=== PATIENT | female | born 1985 | race Two or more races ===

== ENCOUNTER 2022-07-17 10:32 | Emergency (ER) | payer OTHER ==
[2022-07-17 10:39] VITALS: BP 129/69; PULSE 83; RESP 18; TEMP 98.2; BMI 40.1
[2022-07-17] MEDS ORDERED: SODIUM CHLORIDE 0.9% 500 ML INFUS.BAG IV ONE (10:58)
== END 2022-07-17 12:00 | disposition left against medical advice (07) ==
LOC: JER 10:32
DX: O20.9 Hemorrhage in early pregnancy, unspecified (principal); Z3A.12 12 weeks gestation of pregnancy
CPT/HCPCS: 99281-25